=== PATIENT | female | born 1955 | race African-American/Black ===

== ENCOUNTER 2021-07-02 09:10 | Day surgery (SDC) | payer BC ==
[2021-07-02] MEDS ORDERED: Xylocaine 1% Vial 30 ML PF IJ ONE (09:11)
[2021-07-02] MEDS ORDERED: Sodium Chloride 0.9(Preservative Free) 10 ML IJ ONE (09:11)
[2021-07-02] MEDS ORDERED: Depo-Medrol 40 MG/ML IM ONE (09:11)
[2021-07-02] MEDS ORDERED: Lactated Ringers 1,000 ML IV ONE (10:37)
[2021-07-02] MEDS ORDERED: DIPRIVAN 200 MG/20 ML IV ONE (11:13)
--- NOTE | 2021-07-02 12:07 | XRAY ---
Indication: Lumbar KAELYN. Intraoperative fluoroscopy provided for 16 seconds. 2 digital spot image submitted for interpretation demonstrates posterior midline needle tip projecting posterior to lumbosacral junction interspace. Small amount of contrast injected for needle tip placement. Correlate with intraoperative findings/report.
--- NOTE | 2021-07-02 12:21 | XRAY ---
16 seconds fluoroscopy time in surgery for lumbar KAELYN.
== END 2021-07-02 11:42 | disposition home or self-care (01) ==
LOC: SDC-PAIN 09:10
PROVIDERS: ATTEND Psychiatry & Neurology Pain Medicine
DX: M54.16 Radiculopathy, lumbar region (principal); E11.9 Type 2 diabetes mellitus without complications; Z79.899 Other long term (current) drug therapy
CPT/HCPCS: 62323; 72100; 77003; 82947; J1030; J2001; J2704; Q9966

== ENCOUNTER 2021-07-30 09:12 | Day surgery (SDC) | payer BC ==
[2021-07-30] MEDS ORDERED: Sodium Chloride 0.9(Preservative Free) 10 ML IJ ONE (09:13)
[2021-07-30] MEDS ORDERED: Decadron 4 MG INJ IV ONE (09:13)
[2021-07-30] MEDS ORDERED: Depo-Medrol 40 MG/ML IM ONE (09:13)
[2021-07-30] MEDS ORDERED: Xylocaine 1% Vial 30 ML PF IJ ONE (09:13)
[2021-07-30] MEDS ORDERED: DIPRIVAN 200 MG/20 ML IV ONE (11:15)
[2021-07-30] MEDS ORDERED: Lactated Ringers 1,000 ML IV ONE (11:24)
--- NOTE | 2021-07-30 12:50 | XRAY ---
Indication: Left L4-S1 transforaminal KAELYN. Intraoperative fluoroscopy provided for 30 seconds. 4 digital spot images submitted for interpretation demonstrates posterior needle tips projecting over the expected left L4 and L5 nerve roots. Small amount of contrast injected for needle tip placement. Correlate with intraoperative findings/report.
--- NOTE | 2021-07-30 12:50 | XRAY ---
Indication: Left piriformis injection. Intraoperative fluoroscopy provided for 26 seconds. Single digital spot image submitted for interpretation demonstrates posterior needle tip projecting over the expected left piriformis muscle. Small amount of contrast injected for needle tip placement. Correlate with intraoperative findings/report.
--- NOTE | 2021-07-30 12:55 | XRAY ---
30 seconds fluoroscopy time in surgery for left L4-S1 transforaminal KAELYN.
--- NOTE | 2021-07-30 12:55 | XRAY ---
26 seconds fluoroscopy time in surgery for injection of the left piriformis muscle.
== END 2021-07-30 11:45 | disposition home or self-care (01) ==
LOC: SDC-PAIN 09:12
PROVIDERS: ATTEND Psychiatry & Neurology Pain Medicine
DX: M54.16 Radiculopathy, lumbar region (principal); M79.18 Myalgia, other site; E11.9 Type 2 diabetes mellitus without complications; I10 Essential (primary) hypertension; Z79.899 Other long term (current) drug therapy
CPT/HCPCS: 20550; 64483; 64484; 72020; 72100; 77002; 77003; J1030; J1100; J2001; J2704; Q9966

== ENCOUNTER 2021-08-13 10:02 | Day surgery (SDC) | payer BC ==
[2021-08-13] MEDS ORDERED: Xylocaine 1% Vial 30 ML PF IJ ONE (10:03)
[2021-08-13] MEDS ORDERED: Depo-Medrol 40 MG/ML IM ONE (10:03)
[2021-08-13] MEDS ORDERED: BUPIVACAINE 0.5% VIAL IJ ONE (10:03)
--- NOTE | 2021-08-13 13:30 | XRAY ---
Indication: Left knee injection Intraoperative fluoroscopy provided for 5 seconds. Single digital spot images submitted for interpretation demonstrates needle tip projecting over the left femur intercondylar notch. Small amount of contrast injected for needle tip placement. Correlate with intraoperative findings/report.
--- NOTE | 2021-08-13 13:33 | XRAY ---
5 seconds fluoroscopy time in surgery for intra-articular injection of the left knee.
--- NOTE | 2021-08-13 13:33 | XRAY ---
Indication: Right knee injection Intraoperative fluoroscopy provided for 12 seconds. Single digital spot images submitted for interpretation demonstrates needle tip projecting over the right femur intercondylar notch. Small amount of contrast injected for needle tip placement. Correlate with intraoperative findings/report.
--- NOTE | 2021-08-13 13:33 | XRAY ---
12 seconds fluoroscopy time in surgery for intra-articular injection of the right knee.
== END 2021-08-13 13:05 | disposition home or self-care (01) ==
LOC: SDC-PAIN 10:02
PROVIDERS: ATTEND Psychiatry & Neurology Pain Medicine
DX: M17.0 Bilateral primary osteoarthritis of knee (principal); M70.52 Other bursitis of knee, left knee; E11.9 Type 2 diabetes mellitus without complications; I10 Essential (primary) hypertension; Z79.899 Other long term (current) drug therapy
CPT/HCPCS: 20610; 73560; 77002; 82947; J1030; J2001; Q9966